=== PATIENT | female | born 1995 | race Caucasian/White ===

== ENCOUNTER 2020-05-08 07:13 | Emergency (ER) | payer OTHER ==
[~2020-05-08] VITALS: Ht 165.1 cm; Wt 99.2 kg
[2020-05-08] MEDS ORDERED: ACETAMINOPHEN650 M2 (07:27)
[2020-05-08] MEDS ORDERED: VENTOLIN HFA18 GM INH (07:27)
== END 2020-05-08 08:47 | disposition home or self-care (01) ==
LOC: ED 07:13
DX: S06.0X0A Concussion without loss of consciousness, initial encounter (principal); S30.810A Abrasion of lower back and pelvis, initial encounter; J45.909 Unspecified asthma, uncomplicated; Z91.030 Bee allergy status; Z91.018 Allergy to other foods; Z79.899 Other long term (current) drug therapy; W17.89XA Other fall from one level to another, initial encounter
CPT/HCPCS: 72170; 99284-25